=== PATIENT | male | born 1995 | race Caucasian/White ===

== ENCOUNTER 2016-05-24 10:35 | Emergency (ER) | payer OTHER ==
[~2016-05-24] VITALS: Ht 177.8 cm; Wt 83.9 kg
[~2016-05-24 10:35] MED LIST: NAPR500T3 PO; TRAM50TA PO
[2016-05-24 10:45] VITALS: BP 120/66
[2016-05-24] MEDS ORDERED: ALPR0.5T PO (11:06)
--- NOTE | 2016-05-24 11:12 | ED.ADGEN ---
Past History Past Medical History: No Pertinent History Past Surgical History: No Surgical History Alcohol Use: None Drug Use: None Adult General HPI HPI Patient is a 21-year-old male presents emergency department by EMS. He was at primary care physician's office when he may have had a seizure versus panic attack. Patient had no loss of continence. He was seen jerking his head around. Patient tells me has a long history of generalized anxiety and previous of been on antidepressants and Xanax for breakthrough panic attacks. He has had neither since last May. He does report that the last several weeks he has had increased stress and had several panic attacks. He denies any other recent illness or injury. He says that he has never been worked up or been seen by neurologist but he has had 2 or 3 "seizures" in the past. Review of Systems Review of Systems Constitutional: Denies fever or chills [] Eyes: Denies change in visual acuity, redness, or eye pain [] HENT: Denies nasal congestion or sore throat [] Respiratory: Denies cough or shortness of breath [] Cardiovascular: No additional information not addressed in HPI [] GI: Denies abdominal pain, nausea, vomiting, bloody stools or diarrhea [] : Denies dysuria or hematuria [] Musculoskeletal: Denies back pain or joint pain [] Integument: Denies rash or skin lesions [] Neurologic: Denies headache, focal weakness or sensory changes [] Endocrine: Denies polyuria or polydipsia [] Allergies Allergies Allergies Coded Allergies Type Severity Reaction Last Updated Verified No Known Drug Allergies 02/22/15 No Physical Exam Physical Exam Constitutional: Well developed, well nourished, no acute distress, non-toxic appearance. [] HENT: Normocephalic, atraumatic, bilateral external ears normal, oropharynx moist, no oral exudates, nose normal. [] Eyes: PERRLA, EOMI, conjunctiva normal, no discharge. [] Neck: Normal range of motion, no tenderness, supple, no stridor. [] Cardiovascular:Heart rate regular rhythm, no murmur [] Lungs & Thorax: Bilateral breath sounds clear to auscultation [] Abdomen: Bowel sounds normal, soft, no tenderness, no masses, no pulsatile masses. [] Skin: Warm, dry, no erythema, no rash. [] Back: No tenderness, no CVA tenderness. [] Extremities: No tenderness, no cyanosis, no clubbing, ROM intact, no edema. [] Neurologic: Alert and oriented X 3, normal motor function, normal sensory function, no focal deficits noted. [] Psychologic: Affect normal, judgement normal, mood normal. [] EKG EKG [] Radiology/Procedures Radiology/Procedures [] Course & Med Decision Making Course & Med Decision Making Pertinent Labs and Imaging studies reviewed. (See chart for details) The patient looks very well here in emergency department. He has had no postictal period. He will be discharged home with a prescription for Xanax as well as supportive care and return precautions. [] Final Impression Final Impression Anxiety [] Problems: Dragon Disclaimer Dragon Disclaimer This electronic medical record was generated, in whole or in part, using a voice recognition dictation system. JULIO ROY MD May 24, 2016 11:12
== END 2016-05-24 11:40 | disposition home or self-care (01) ==
LOC: ER 10:35
DX: F41.1 Generalized anxiety disorder (principal)
CPT/HCPCS: 99283

== ENCOUNTER 2021-06-09 21:17 | Emergency (ER) | payer OTHER ==
[~2021-06-09] VITALS: Ht 182.9 cm; Wt 93.7 kg
[~2021-06-09 21:17] MED LIST changes: +ALPR0.5T PO; +NAPR-514 PO; -NAPR500T3 PO
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
[2021-06-09] MEDS: KETOROLAC 60 MG/2 ML VIAL. IM ONE (21:58)
[2021-06-09] MEDS: ACETAMINOPHEN 500 MG TABLET PO ONE (21:59)
[2021-06-09 22:18] VITALS: BP 136/72
== END 2021-06-09 22:22 | disposition home or self-care (01) ==
LOC: ER 21:17
DX: S02.2XXA Fracture of nasal bones, initial encounter for closed fracture (principal); W50.0XXA Accidental hit or strike by another person, initial encounter; Y93.89 Activity, other specified; Y92.89 Other specified places as the place of occurrence of the external cause; Y99.8 Other external cause status
CPT/HCPCS: 96372; 99283; J1885

== ENCOUNTER → 2021-06-11 | Outpatient (CLI) | payer OTHER ==
[2021-06-09 22:18] VITALS: BP 136/72
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
== END ==
LOC: RAD 15:35
PROVIDERS: ATTEND Specialist
DX: S02.2XXA Fracture of nasal bones, initial encounter for closed fracture (principal); X58.XXXA Exposure to other specified factors, initial encounter; Y93.89 Activity, other specified; Y92.89 Other specified places as the place of occurrence of the external cause; Y99.8 Other external cause status
CPT/HCPCS: 70160